=== PATIENT | female | born 1960 | race Caucasian/White ===

== ENCOUNTER → 2016-11-05 16:20 | Outpatient (CLI) | payer OTHER | END | disposition home or self-care (01) | LOC: D.MAMMO 15:15 | DX: Z12.31 Encounter for screening mammogram for malignant neoplasm of breast (principal) ==

== ENCOUNTER → 2017-03-12 15:59 | Outpatient (CLI) | payer OTHER | END | disposition home or self-care (01) | LOC: D.CT 15:59 | DX: R91.1 Solitary pulmonary nodule (principal) ==

== ENCOUNTER → 2017-09-13 09:29 | Outpatient (CLI) | payer OTHER | END | disposition home or self-care (01) | LOC: D.RT 09:29 | DX: J44.9 Chronic obstructive pulmonary disease, unspecified (principal) ==

== ENCOUNTER → 2017-11-25 12:30 | Outpatient (CLI) | payer OTHER | END | disposition home or self-care (01) | LOC: D.LABREF 12:30 | DX: J44.9 Chronic obstructive pulmonary disease, unspecified (principal) ==

== ENCOUNTER → 2017-11-26 13:19 | Outpatient (CLI) | payer OTHER | END | disposition home or self-care (01) | LOC: D.CT 13:19 | DX: I71.4 Abdominal aortic aneurysm, without rupture (principal) ==

== ENCOUNTER → 2018-12-22 08:00 | Outpatient (CLI) | payer OTHER | END | disposition home or self-care (01) | LOC: D.MAMMO 08:00 | PROVIDERS: ATTEND Family Medicine | DX: Z12.31 Encounter for screening mammogram for malignant neoplasm of breast (principal) ==

== ENCOUNTER → 2019-05-04 09:56 | Outpatient (CLI) | payer OTHER | END | disposition home or self-care (01) | LOC: D.RT 09:56 | PROVIDERS: ATTEND Internal Medicine Pulmonary Disease | DX: J44.9 Chronic obstructive pulmonary disease, unspecified (principal) ==

== ENCOUNTER 2019-12-29 10:15 | Inpatient (IN) | payer OTHER ==
[~2019-12-29] VITALS: Ht 160 cm; Wt 73.6 kg
--- NOTE | ~2019-12-29 | EC ---
PATIENT:VENECIA CARRERA DATE OF SERVICE: 12/29/19 SEX: F MEDICAL RECORD: [id number] DATE OF : 62 LOCATION:D.M2 D.210 AGE OF PATIENT: 59 ADMISSION DATE: 12/29/19 REFERRING PHYSICIAN: INTERPRETING PHYSICIAN: WENDY BURNETT MD ECHOCARDIOGRAM REPORT ECHO CHARGES 5 ECHO LIMITED Date: 12/30/19 CLINICAL DIAGNOSIS: DYSPNEA ECHOCARDIOGRAPHIC MEASUREMENTS (adult normal given) AC root (d.<3.7cm) cm LV Septum d (<1.2 cm> cm Valve Excursion cm LV Septum (systole) cm Left Atria (s.<4.0cm> 2.9 cm LVPW d(<1.2cm) cm RV (d.<2.3cm) cm LVPW (sytole) cm LV diastole(<5.6CM) cm MV E-F(>70mm/sec) cm LV systole cm LVOT Diameter cm MV exc.(>10mm) cm Est.ejection fraction (50-75%) % DOPPLER: LVIT cm/sec A 68 cm/sec E 66 cm/sec LA cm/sec RVSP 20.1 mmHg LVOT 81 cm/sec AOP1/2T m/s Asc. Ao 140 cm/sec RVOT cm/sec RA cm/sec PA cm/sec AV Gradient Peak 7.9 mmHg AV Mean 3.9 mmHg AV Area cm MV Gradient Peak 3.2 mmHg MV Mean 1.8 mmHg MV Area cm COMMENTS: Painter Barrel: Ev MCKNIGHT Manager Mental Health: Etienne Burnett TAPE# PACS Pericardial Effusion Y DATE OF SERVICE: FINDINGS: 1. Left ventricular chamber size is within normal limits. Left ventricular systolic function is normal. Overall ejection fraction estimated at 50%. 2. Left atrium, right atrium, and right ventricle chamber sizes are within normal limits. 3. Valvular structures have normal structure and motion. 4. Doppler interrogation reveals mild tricuspid regurgitation, no other valvular insufficiency or stenosis. Pulmonary systolic pressure estimated at 20 ECHOCARDIOGRAM REPORT [id number] VENECIA CARRERA mmHg. 5. No evidence of pericardial effusion. No evidence of left atrial thrombus. There is trace to small pericardial effusion present that is not hemodynamically significant. TRANSINT:[id number] Voice Confirmation ID: [id number] DOCUMENT ID: [id number] WENDY BURNETT MD CC: [id number] DICTATION DATE: 12/31/191115 FORGE HAND: 12/31/19 1858 ADM IN [facility] [address] [id number]
[2019-12-29] MEDS ORDERED: CYCLOBENZAPRINE10 MG PO (10:20)
[2019-12-29] MEDS ORDERED: ZOLOFT100 MG PO (10:21)
[2019-12-29] MEDS ORDERED: ALDACTONE50 MG PO (10:21)
[2019-12-29] MEDS ORDERED: ABILIFY10 MG PO (10:21)
[2019-12-29] MEDS ORDERED: MOBIC7.5 MG PO (10:21)
[2019-12-29] MEDS ORDERED: DALIRESP500 MCG PO (10:21)
[2019-12-29] MEDS ORDERED: SINGULAIR10 MG PO (10:22)
[2019-12-29] MEDS ORDERED: PROMETRIUM200 MG PO (10:22)
[2019-12-29] MEDS ORDERED: ADDERALL XR 2525 MG PO (10:22)
[2019-12-29] MEDS ORDERED: FOLATE0.4 MG PO (10:22)
[2019-12-29] MEDS ORDERED: AMBIEN10 MG PO (10:22)
[2019-12-29] MEDS ORDERED: PULMICORT0.5 MG/21 INH (10:23)
[2019-12-29] MEDS ORDERED: BROVANA15 MCG/2 M INH (10:23)
[2019-12-29] MEDS ORDERED: XOPENEX 1.1.25 MG/3 UPD (10:23)
[2019-12-29] MEDS ORDERED: SPIRIVA18 MCG INH (10:23)
[2019-12-29 10:44] LABS: BASOPHILS 0.3 % (0-2); HEMATOCRIT 46.2 % (36.0-48.0); HEMOGLOBIN 15.2 g/dL (12-16); IMMATURE GRANULOCYTES 0.3 % (0-5); LYMPHOCYTES 10.7 % (15-50); MCH 32.2 pg (26.0-34.0); MCHC 32.9 g/dL (31.0-37.0); MCV 97.9 fL (80.0-100.0); MONOCYTES 7.8 % (2-11); NEUTROPHILS 77.9 % (40-80); PLATELET COUNT 294 10x3/uL (130-400); RBC 4.72 10x6/uL (4.00-5.40); RDW 12.6 % (11.5-14.5); WBC 8.8 10x3/uL (4.8-10.8)
[2019-12-29 10:55] LABS: CALC OSMOLALITY 275 mosm/kg (275-300); CALCIUM 9.4 mg/dL (8.5-10.1); CARBON DIOXIDE 33.8 mmol/L (21.0-32.0); CHLORIDE - SERUM 100 mmol/L (98-107); CREATININE - SERUM 0.6 mg/dL (0.6-1.3); GLUCOSE 113 mg/dL (74-106); POTASSIUM - SERUM 4.3 mmol/L (3.5-5.1); SODIUM 138 mmol/L (136-145); UREA NITROGEN 11 mg/dL (7-18); eGFR NON AFRICAN AMERICAN > 90 mL/min (90-120)
[2019-12-29 10:56] LABS: APTT 26.5 SECONDS (22.8-39.4); INR 0.89 (0.85-1.17)
[2019-12-29 11:12] LABS: ALBUMIN 3.8 g/dL (3.4-5.0); ALKALINE PHOSPHATASE 92 U/L (30-120); ALT (SGPT) 34 U/L (10-68); BILIRUBIN - TOTAL 0.26 mg/dL (0.2-1.3); CREATINE KINASE 115 UL (21-215); PRO BNP 149 pg/mL (0-125); TROPONIN-I < 0.017 ng/mL (0.000-0.060)
[2019-12-29 11:30] VITALS: BP 154/108
--- NOTE | 2019-12-29 13:00 | NUR ---
PT AMB TO BR AND BECAME EXTREMELY SOB. MD NOTIFIED AND BREATHIGN TX ORDEED.
[2019-12-29 13:19] VITALS: BP 146/100
--- NOTE | 2019-12-29 14:28 | NUR ---
report to HENNA Jones at 14:27
[2019-12-29 15:03] VITALS: BP 146/100; BMI 28.7
--- NOTE | 2019-12-29 19:10 | NUR ---
REPORT RECEIVED. BEDSIDE SHIFT REPORT COMPLETE. PT RESTING IN BED WATCHING TV, RR EVEN AND UNLABORED. NO S/SX OF DISTRESS OBSERVED AT THIS TIME. NO NEEDS EXPRESSED. CALL LIGHT IN REACH. WILL CTM.
[2019-12-29 20:00] VITALS: BP 148/94
[2019-12-29 20:00] LABS: CREATINE KINASE 117 UL (21-215)
[2019-12-29 20:06] LABS: TROPONIN-I < 0.017 ng/mL (0.000-0.060)
[2019-12-30] VITALS: BP 147/95
[2019-12-30 01:46] LABS: CKMB 9.9 U/L (0.0-3.6); CREATINE KINASE 101 UL (21-215); TROPONIN-I < 0.017 ng/mL (0.000-0.060)
[2019-12-30 04:00] VITALS: BP 126/89
[2019-12-30 05:12] LABS: BASOPHILS 0.2 % (0-2); EOSINOPHILS 0 % (0-7); HEMATOCRIT 44.6 % (36.0-48.0); HEMOGLOBIN 14.6 g/dL (12-16); IMMATURE GRANULOCYTES 0.2 % (0-5); LYMPHOCYTES 7.5 % (15-50); MCH 31.7 pg (26.0-34.0); MCHC 32.7 g/dL (31.0-37.0); MEAN PLATELET VOLUME 9.1 fL (7.4-10.4); MONOCYTES 1.7 % (2-11); NEUTROPHILS 90.4 % (40-80); PLATELET COUNT 318 10x3/uL (130-400); RDW 12.7 % (11.5-14.5); WBC 6.6 10x3/uL (4.8-10.8)
[2019-12-30 05:42] LABS: ALBUMIN 3.7 g/dL (3.4-5.0); ALKALINE PHOSPHATASE 82 U/L (30-120); ALT (SGPT) 33 U/L (10-68); BILIRUBIN - TOTAL 0.32 mg/dL (0.2-1.3); CALC OSMOLALITY 278 mosm/kg (275-300); CALCIUM 9.8 mg/dL (8.5-10.1); CARBON DIOXIDE 32.2 mmol/L (21.0-32.0); CHLORIDE - SERUM 101 mmol/L (98-107); CKMB 8.1 U/L (0.0-3.6); CREATINE KINASE 87 UL (21-215); CREATININE - SERUM 0.5 mg/dL (0.6-1.3); GLUCOSE 126 mg/dL (74-106); MAGNESIUM - SERUM 2.1 mg/dL (1.8-2.4); PHOSPHOROUS 3.7 mg/dL (2.5-4.9); POTASSIUM - SERUM 4.1 mmol/L (3.5-5.1); PROTEIN - SERUM 7.7 g/dL (6.4-8.2); SODIUM 139 mmol/L (136-145); UREA NITROGEN 10 mg/dL (7-18); eGFR NON AFRICAN AMERICAN > 90 mL/min (90-120)
[2019-12-30 05:48] LABS: TROPONIN-I < 0.017 ng/mL (0.000-0.060)
[2019-12-30 09:10] VITALS: BP 144/100
--- NOTE | 2019-12-30 10:20 | NUR ---
ASSISTED UP TO CHAIR WITH PT ASSIST. TELEMETRY SR. 02 3.5L NC NOTED. CALL LIGHT IN REACH.
[2019-12-30 12:00] VITALS: BP 144/104
[2019-12-30 15:12] VITALS: Ht 160 cm; Wt 73.6 kg
[2019-12-30 16:00] VITALS: BP 166/100
--- NOTE | 2019-12-30 19:00 | NUR ---
REPORT RECEIVED. BEDSIDE SHIFT REPORT COMPLETE. PT IN BED HIGH-FOWLERS RR EVEN AND LABORED. AUDIBLE WHEEZES HEARD. PT VOICES NO C/O OR CONCERNS AT THIS TIME. NO S/SX OF DISTRESS OBSERVED. CALL LIGHT IN REACH. WILL CTM.
[2019-12-30 20:00] VITALS: BP 148/100
[2019-12-31 01:35] VITALS: BP 155/106
--- NOTE | 2019-12-31 03:00 | NUR ---
PT C/O SOB AND INCREASED ANXIETY. PT AGREED TO BIPAP, NOTIFIED RT. PT CONTINUES TO HAVE FREQUENT NON-PRODUCTIVE COUGH AND WHEEZES.
--- NOTE | 2019-12-31 05:00 | NUR ---
BSC PROVIDED, INCREASED SOB AND HEART RATE WITH MINIMAL EXERTION. ENCOURAGED CALL LIGHT FOR ASSISTANCE.
[2019-12-31 05:11] VITALS: BP 146/98
[2019-12-31 05:15] LABS: BASOPHILS 0.1 % (0-2); EOSINOPHILS 0 % (0-7); HEMATOCRIT 45.1 % (36.0-48.0); HEMOGLOBIN 14.9 g/dL (12-16); IMMATURE GRANULOCYTES 0.4 % (0-5); LYMPHOCYTES 3.4 % (15-50); MCH 31.8 pg (26.0-34.0); MCV 96.2 fL (80.0-100.0); MEAN PLATELET VOLUME 9.4 fL (7.4-10.4); NEUTROPHILS 93.1 % (40-80); PLATELET COUNT 329 10x3/uL (130-400); RBC 4.69 10x6/uL (4.00-5.40); RDW 12.6 % (11.5-14.5); WBC 11.2 10x3/uL (4.8-10.8)
[2019-12-31 05:27] LABS: CALC OSMOLALITY 276 mosm/kg (275-300); CALCIUM 9.6 mg/dL (8.5-10.1); CARBON DIOXIDE 35.1 mmol/L (21.0-32.0); CHLORIDE - SERUM 96 mmol/L (98-107); CREATININE - SERUM 0.6 mg/dL (0.6-1.3); GLUCOSE 119 mg/dL (74-106); MAGNESIUM - SERUM 2.3 mg/dL (1.8-2.4); POTASSIUM - SERUM 4.3 mmol/L (3.5-5.1); SODIUM 137 mmol/L (136-145); eGFR NON AFRICAN AMERICAN > 90 mL/min (90-120)
[2019-12-31 05:29] LABS: UREA NITROGEN 19 mg/dL (7-18)
[2019-12-31 09:14] VITALS: BP 154/100
--- NOTE | 2019-12-31 09:37 | NUR ---
PT AWAKE AND ORIENTED. LYING N BED, NO COMPLAINTS OR CONCERNS, ABX DONE, SL I/V. NO FAMILY AT BEDSIDE. ALL QUESTIONS ANSWERED TO THE BEST OF MY ABILITY. CL IN REACH, SRX2.
[2019-12-31 12:00] VITALS: BP 135/94
--- NOTE | 2019-12-31 13:11 | NUR ---
PT AWAKE AND ORIENTED, SITTING UP IN BED. CALLED INTO ROOM, PT WAS SITTING CROSS LEGGED IN BED BENT SLIGHTLY. PT STATES THAT SHE CAN NOT BREATH. SHE IS FLUSHED, WHEEZING AUDIBLE FROM THE DOORWAY. SPOKE TO DR KIM, HE ADMINISTERED BREATHING TX. ORDERED BIPAP AND ABGS (RESPIRATORY BRINGING UP NOW). 02 SATS AT 95%. CL IN [facility],SRX2.
[2019-12-31 16:42] VITALS: BP 154/94
--- NOTE | 2019-12-31 17:00 | NUR ---
I have reviewed this patient and I concur with the Shift Assessment completed by the Licensed Practical Nurse today this shift.
[2019-12-31 20:00] VITALS: BP 135/105
[2020-01-01] VITALS (7 sets, daily range): BP systolic 128–170; BP diastolic 90–102
[2020-01-01 05:20] LABS: BASOPHILS 0 % (0-2); EOSINOPHILS 0 % (0-7); HEMATOCRIT 43.5 % (36.0-48.0); HEMOGLOBIN 14.2 g/dL (12-16); IMMATURE GRANULOCYTES 0.3 % (0-5); LYMPHOCYTES 4.9 % (15-50); MCH 31.8 pg (26.0-34.0); MCHC 32.6 g/dL (31.0-37.0); MCV 97.3 fL (80.0-100.0); MEAN PLATELET VOLUME 9.2 fL (7.4-10.4); MONOCYTES 3.4 % (2-11); NEUTROPHILS 91.4 % (40-80); PLATELET COUNT 340 10x3/uL (130-400); RBC 4.47 10x6/uL (4.00-5.40); RDW 12.7 % (11.5-14.5); WBC 10.1 10x3/uL (4.8-10.8)
[2020-01-01 06:03] LABS: CALC OSMOLALITY 280 mosm/kg (275-300); CARBON DIOXIDE 37.7 mmol/L (21.0-32.0); CHLORIDE - SERUM 100 mmol/L (98-107); CREATININE - SERUM 0.7 mg/dL (0.6-1.3); GLUCOSE 155 mg/dL (74-106); MAGNESIUM - SERUM 2.1 mg/dL (1.8-2.4); POTASSIUM - SERUM 4.1 mmol/L (3.5-5.1); SODIUM 137 mmol/L (136-145); UREA NITROGEN 23 mg/dL (7-18); eGFR NON AFRICAN AMERICAN > 90 mL/min (90-120)
--- NOTE | 2020-01-01 07:31 | NUR ---
PTS B/P ELECTRONICALLY READING TOO HIGH, STUDENT IN ROOM GETTING MANUAL BLOOD PREASURE. WILL UPDATE.
--- NOTE | 2020-01-01 12:10 | NUR ---
PT AWAKE AND ORIENTED, HAS HAD NO COMPLICATIONS WITH BREATHING THIS MORNING, MORE THAN COMPLIENT WITH THE BIPAP AND REQUESTS IT ON ALL THE TIME IF IT'LL HELP HER GET BETTER FASTER. NOTED LESS SHORTNESS OF BREATH THAN YESTERDAY, ABLE TO GO TO THE BATHROOM WITH OUT INCIDENT. NO COMPLAINTS OR CONCENRS AT THIS TIME. CL INR EACH, SRX2, NO FAMILY AT BEDSIDE.
--- NOTE | 2020-01-01 12:48 | NUR ---
I have reviewed this patient and I concur with the Shift Assessment completed by the Licensed Practical Nurse today this shift.
--- NOTE | 2020-01-01 19:20 | NUR ---
PT AWAKE AND SOB O2 PUT FROM 3 BACK TO 4 LITERS PT SOON CAUGHT HER BREATH LUNGS VERY DEMINISHED BED LOW AND LOCKED IV IS OCLUDID CALL LIGHT IS WITH PT
--- NOTE | 2020-01-01 19:51 | NUR ---
RESTARTED IV WITH 22 TO LEFT FA AFTER REMOVING OLD SITE WITH CATH INTACT CONTINUED DOXYCYCLINE AT THIS TIME
[2020-01-02 00:12] VITALS: BP 134/99
--- NOTE | 2020-01-02 03:33 | NUR ---
I have reviewed this patient and I concur with the Shift Assessment completed by the Licensed Practical Nurse today this shift.
[2020-01-02 03:45] VITALS: BP 162/102
[2020-01-02 04:48] LABS: BASOPHILS 0 % (0-2); EOSINOPHILS 0 % (0-7); HEMATOCRIT 43.1 % (36.0-48.0); HEMOGLOBIN 13.9 g/dL (12-16); IMMATURE GRANULOCYTES 0.5 % (0-5); MCH 31.4 pg (26.0-34.0); MCHC 32.3 g/dL (31.0-37.0); MCV 97.5 fL (80.0-100.0); MEAN PLATELET VOLUME 8.9 fL (7.4-10.4); MONOCYTES 9.2 % (2-11); NEUTROPHILS 82.3 % (40-80); PLATELET COUNT 331 10x3/uL (130-400); RBC 4.42 10x6/uL (4.00-5.40); RDW 12.3 % (11.5-14.5); WBC 11.7 10x3/uL (4.8-10.8)
[2020-01-02 05:14] LABS: CALCIUM 9.2 mg/dL (8.5-10.1); CARBON DIOXIDE 39.6 mmol/L (21.0-32.0); CHLORIDE - SERUM 100 mmol/L (98-107); POTASSIUM - SERUM 4.3 mmol/L (3.5-5.1); SODIUM 140 mmol/L (136-145); UREA NITROGEN 20 mg/dL (7-18)
[2020-01-02 05:20] LABS: CALC OSMOLALITY 281 mosm/kg (275-300); CREATININE - SERUM 0.5 mg/dL (0.6-1.3); GLUCOSE 92 mg/dL (74-106); eGFR NON AFRICAN AMERICAN > 90 mL/min (90-120)
--- NOTE | 2020-01-02 07:00 | NUR ---
RECEIVED REPORT. ASSUMED CARE OF PATIENT. PATIENT SITTING UP IN BED WITH EYES OPEN. RESP EVEN AND UNLABORED. BIPAP PATENT. PATIENT DENIES NEEDS AT THIS TIME. CALL LIGHT WITHIN REACH. NO DISTRESS.
[2020-01-02 09:03] VITALS: BP 156/88
--- NOTE | 2020-01-02 11:38 | NUR ---
PATIENT OOB TO CHAIR AT BEDSIDE. STARTED ON NYSTATIN FOR ORAL THRUSH. NO DISTRESS. CALL LIGHT WITHIN REACH.
[2020-01-02 13:43] VITALS: BP 156/62
--- NOTE | 2020-01-02 15:00 | NUR ---
PATIENT RESTING WELL WITH EYES CLOSED. RESP EVEN AND UNLABORED ON BIPAP. EASILY AROUSED. NO DISTRESS.
--- NOTE | 2020-01-02 15:25 | NUR ---
PATIENT BIPAP ALARMING, PATIENT TOOK BIPAP OFF TO CONSUME DONUT. 02 VIA NASAL CANULA AT THIS TIME. NO DISTRESS.
[2020-01-02 17:04] VITALS: BP 150/94
--- NOTE | 2020-01-02 17:40 | NUR ---
22 GAUGE IV REMOVED FROM LEFT FOREARM DUE TO PAIN, STINGING. CATHETER TIP INTACT. NO BLEEDING FROM SITE. 2X2 GAUZE APPLIED AND SECURED WITH TAPE. 20 GAUGE IV PLACED TO RIGHT HAND X 1 STICK. GOOD BLOOD RETURN, EASY FLUSH. TOLERALED IV PLACEMENT WELL. TAPED, DATED AND SECURED. IV ABX NOW INFUSING.
--- NOTE | 2020-01-02 19:11 | NUR ---
AWKE AND ALERT BED LOW AND LOCKED REMOVED LINE AND FLUSHED IV PT DENIES ANY OTHER NEEDS AT THIS TIME
[2020-01-02 20:39] VITALS: BP 160/106
[2020-01-03] VITALS: BP 181/114
--- NOTE | 2020-01-03 01:40 | NUR ---
I have reviewed this patient and I concur with the Shift Assessment completed by the Licensed Practical Nurse today this shift.
[2020-01-03 05:13] VITALS: BP 146/96
[2020-01-03 06:52] LABS: BASOPHILS 0 % (0-2); EOSINOPHILS 0 % (0-7); HEMATOCRIT 44.1 % (36.0-48.0); HEMOGLOBIN 14.1 g/dL (12-16); IMMATURE GRANULOCYTES 0.6 % (0-5); LYMPHOCYTES 4.7 % (15-50); MCH 31.2 pg (26.0-34.0); MCV 97.6 fL (80.0-100.0); MEAN PLATELET VOLUME 9.1 fL (7.4-10.4); MONOCYTES 3.2 % (2-11); NEUTROPHILS 91.5 % (40-80); PLATELET COUNT 315 10x3/uL (130-400); RBC 4.52 10x6/uL (4.00-5.40); RDW 12.5 % (11.5-14.5); WBC 10.3 10x3/uL (4.8-10.8)
[2020-01-03 07:18] LABS: CALC OSMOLALITY 283 mosm/kg (275-300); CALCIUM 9.4 mg/dL (8.5-10.1); CHLORIDE - SERUM 99 mmol/L (98-107); CREATININE - SERUM 0.5 mg/dL (0.6-1.3); POTASSIUM - SERUM 4.5 mmol/L (3.5-5.1); SODIUM 140 mmol/L (136-145); UREA NITROGEN 18 mg/dL (7-18); eGFR NON AFRICAN AMERICAN > 90 mL/min (90-120)
[2020-01-03 07:20] LABS: GLUCOSE 148 mg/dL (74-106)
[2020-01-03 09:00] VITALS: BP 145/90
--- NOTE | 2020-01-03 09:51 | NUR ---
PT C/O SOB AFTER AMBULATING TO THE BR. PT WEARING BIPAP NOW AND I CALLED RESPIRATORY FOR BREATHING TREATMENT. LUNGS HAVE SEVERE EXPIRATORY WHEEZING THROUGHOUT ALL LOBES. PULSE OX 98% WILL CTM.
--- NOTE | 2020-01-03 10:24 | NUR ---
PT VOICED RELIEF AND STATES SHE IS BREATHING BETTER NOW. RR NONLABORED AND NC @4L BACK IN PLACE. PT SITTING STRAIGHT UP IN BED AND DENIES ANY CURRENT PAIN OR NEEDS AT THIS TIME. CL IN REACH, BED IN LOWEST, SIDE RAILS X2. WILL CTM.
[2020-01-03 11:00] VITALS: BP 170/104
--- NOTE | 2020-01-03 19:15 | NUR ---
REPORT RECEIVED, WILL CONTINUE POC. PATIENT IS AAOX4, LYING IN HIGH-FOWLERS POSITION. PIV TO RT WRIST INFUSING NS. RR EVEN AND UNLABORED ON 4L O2 VIA NC, NO S/S OF DISTRESS OBSERVED. PATIENT DENIES NEEDS AT THIS TIME. CL IN REACH, BED LOCKED AND LOWERED. WILL CTM.
[2020-01-03 20:00] VITALS: BP 140/101
[2020-01-04] VITALS: BP 144/101
--- NOTE | 2020-01-04 03:37 | NUR ---
I have reviewed this patient and I concur with the Shift Assessment completed by the Licensed Practical Nurse today this shift.
[2020-01-04 04:00] VITALS: BP 163/103
[2020-01-04 05:49] LABS: CALC OSMOLALITY 281 mosm/kg (275-300); CHLORIDE - SERUM 100 mmol/L (98-107); CREATININE - SERUM 0.5 mg/dL (0.6-1.3); GLUCOSE 111 mg/dL (74-106); POTASSIUM - SERUM 4.5 mmol/L (3.5-5.1); SODIUM 139 mmol/L (136-145); UREA NITROGEN 21 mg/dL (7-18); eGFR NON AFRICAN AMERICAN > 90 mL/min (90-120)
[2020-01-04 05:53] LABS: CARBON DIOXIDE 40.7 mmol/L (21.0-32.0)
[2020-01-04 05:57] LABS: BASOPHILS 0.1 % (0-2); EOSINOPHILS 0 % (0-7); IMMATURE GRANULOCYTES 1.1 % (0-5); LYMPHOCYTES 4.4 % (15-50); MCHC 32.6 g/dL (31.0-37.0); MCV 98.4 fL (80.0-100.0); MONOCYTES 4.9 % (2-11); NEUTROPHILS 89.5 % (40-80); PLATELET COUNT 314 10x3/uL (130-400); RBC 4.37 10x6/uL (4.00-5.40); RDW 12.4 % (11.5-14.5); WBC 11.8 10x3/uL (4.8-10.8)
[2020-01-04 08:57] VITALS: BP 170/109
[2020-01-04 12:02] VITALS: BP 171/107
[2020-01-04 17:07] VITALS: BP 142/70
--- NOTE | 2020-01-04 19:21 | NUR ---
AWAKE WITH BIPAP IN PLACE DENIES NEEDS AT THIS TIME BED LOW AND LOCKED CALL LIGHT IS WITH PT
[2020-01-04 20:00] VITALS: BP 135/85
[2020-01-05] VITALS: BP 121/78
--- NOTE | 2020-01-05 03:10 | NUR ---
I have reviewed this patient and I concur with the Shift Assessment completed by the Licensed Practical Nurse today this shift.
[2020-01-05 04:00] VITALS: BP 169/99
--- NOTE | 2020-01-05 07:50 | NUR ---
PT SITTING UP IN BED. TALKING ON THE PHONE. O2 AT 3L VIA NC. BED LOW. CL IN REACH.
[2020-01-05 08:52] VITALS: BP 165/98
[2020-01-05] MEDS ORDERED: PROTONIX40 MG PO (10:09)
[2020-01-05] MEDS ORDERED: LISINOPRIL10 MG PO (10:09)
[2020-01-05] MEDS ORDERED: STERAPRED DS 1010 MG PO (10:10)
--- NOTE | 2020-01-05 12:02 | NUR ---
Nutrition Follow-up: Fair PO intake. Noted plans for d/c. Diet: Cardiac PO intake: 56% avg x 4 meals Wt: 162# (01/03) Labs noted: Glu 111 Meds noted: Solumedrol, Nystatin, Protonix -Continue current diet as tolerated. -Monitor wt; noted daily wts ordered. -RD following.
--- NOTE | 2020-01-05 13:00 | MORECARE ---
CASE MANAGEMENT DISCHARGE SUMMARY PATIENT: VENECIA CARRERA UNIT: [id number] ADM DATE: 12/29/19 AGE: 59 : 62 SEX: F ROOM/BED: D.2105 AUTHOR: BRYCE,DOC PHYSICIAN: REFERRING PHYSICIAN: MASSIEL PAZ MD DATE OF SERVICE: 01/05/20 Discharge Plan Patient Name: VENECIA CARRERA Facility: [facility]:[place] : 1960 Planned Disposition: Home Anticipated Discharge Date: 01/05/20 Discharge Date: Expected LOS: 7 Initial Reviewer: [id number] Initial Review Date: 01/05/2020 Generated: 01/05/20 1:59 pm DCPIA - Discharge Planning Initial Assessment Updated by PASQUALE: Celso Finley on 01/05/20 12:58 pm * Is the patient Alert and Oriented? Yes * How many steps to enter\exit or inside your home? * PCP DR. PAZ OR EPI * Pharmacy [facility] * Preadmission Environment Home with Family * ADLs Independent * Equipment Nebulizer Oxygen * Other Equipment HOME AND PORTABLE OXYGEN [facility] - PROVIDER * List name and contact numbers for known caregivers / representatives who currently or will assist patient after discharge: DONNA SPARKS, DTR, * Verbal permission to speak to the caregivers and representatives has been obtained from the patient. N/A * Community resources currently utilized None * Please name any agencies selected above. NONE * Additional services required to return to the preadmission environment? No * Can the patient safely return to the preadmission environment? Yes * Has this patient been hospitalized within the prior 30 days at any hospital? No External Providers External Provider[facility] [place] Next Contact Date: 01/05/2020 Service Request Date: Service Type: Resolution: Reviewer: Comments: Coverage Notice Reviewer: [id number] - Celso Finley Notice Issued Date-Time: 01/05/2020 12:15 Notice Type: Patient Choice Letter Notice Delivered To: Patient Relationship to Patient: Ground Host/Hostess Name: Delivery Method: HAND - Hand Delivered Abbey Days: Prior Verbal Notification: Recipient Understood Notice: Yes Recipient Signature: Yes Med Rec Note Co-signed by Attending: Coverage Notice Comment: GOLDEN Patient Name: VENECIA CARRERA Page [phone] at 1300 All edits/amendments must be made on the electronic document DICTATION DATE: 01/05/201258 CHEMICAL ENGRAVER: BRAYAN 01/05/201258 RPT#: [id number] DC DATE: STATUS: ADM IN [facility] [address] [place] [address] END OF REPORT
--- NOTE | 2020-01-05 13:21 | MORECARE ---
CASE MANAGEMENT DISCHARGE SUMMARY PATIENT: VENECIA CARRERA UNIT: [id number] ADM DATE: 12/29/19 AGE: 59 : 62 SEX: F ROOM/BED: D.0433 AUTHOR: BRYCE,DOC PHYSICIAN: REFERRING PHYSICIAN: MASSIEL PAZ MD DATE OF SERVICE: 01/05/20 Discharge Plan Patient Name: VENECIA CARRERA Facility: [facility]:[place] : 1960 Planned Disposition: Home Anticipated Discharge Date: 01/05/20 Discharge Date: Expected LOS: 7 Initial Reviewer: [email or web address] Initial Review Date: 01/05/2020 Generated: 01/05/20 2:21 pm Comments DCP- Discharge Planning Updated by [id number]: Celso Finley on 01/05/20 12:[address] Patient Name: VENECIA CARRERA Admission Status: ER Accout number: [id number] Admission Date: 12-29-2019 : 1960 Admission Diagnosis: Attending: SAMANTHA PAZ Current LOS: 7 Anticipated DC Date: 01-05-2020 Planned Disposition: Home Primary Insurance: [employer] Discharge Planning Comments: CM RECEIVED ORDER FOR TRILOGY AND PULMONARY REHAB. CM MET WITH PT IN ROOM TO DISCUSS DISCHARGE PLANNING AND NEEDS. PT REPORTS LIVING AT HOME INDEPENDENTLY WITH HER SPOUSE; PT IS CAREGIVER FOR HER SPOUSE AT HOME. PT HAS NEBULIZER AND HOME / PORTABLE OXYGEN FROM [facility] [place]. PT HAS NO OUTSIDE SERVICES ASSISTING IN THE HOME. CM DISCUSSED AVAILABILITY OF HOME HEALTH, REHAB SERVICES AND MEDICAL EQUIPMENT. PT WOULD LIKE TRILOGY FROM [facility] [place], CHOICE SIGNED. PT REPORTS FAMILY WILL PICK HER UP FOR DISCHARGE HOME. CM CALLED [facility] [place], , SPOKE TO ERASMO WHO TOOK TRILOGY ORDER. CM FAXED TRILOGY ORDERS TO [facility] AT [phone]. [facility] TO ARRANGE TRILOGY TO HOPITAL ROOM TODAY IF APPROVED BY INSURANCE. CM CALLED [facility], , TO SET UP PULMONARY REHAB OUTPATIENT; CM LEFT MESSAGE THEIR OFFICE IS NOT OPEN ON FRIDAYS, CM LEFT DETAILED MESSAGE. CM FAXED REFERRAL TO [facility] AT [phone]. CM WAITING INSURANCE APPROVAL OF TRILOGY AND FOR [facility]OLD[facility] TO DELIVER TO PT'S ROOM. [facility] TO CONTACT PT FOR APPOINTMENT. Admitting Coordinator: Celso Finley DCPIA - Discharge Planning Initial Assessment Updated by [id number]: Celso Finley on 01/05/20 12:58 pm * Is the patient Alert and Oriented? Yes * How many steps to enter\exit or inside your home? * PCP DR. PAZ OR EPI * Pharmacy [facility] [address] [facility] * Preadmission Environment Home with Family * ADLs Independent * Equipment Nebulizer Oxygen * Other Equipment HOME AND PORTABLE OXYGEN [facility] - PROVIDER * List name and contact numbers for known caregivers / representatives who currently or will assist patient after discharge: DONNA SPARKS, DTR, * Verbal permission to speak to the caregivers and representatives has been obtained from the patient. N/A * Community resources currently utilized None * Please name any agencies selected above. NONE * Additional services required to return to the preadmission environment? No * Can the patient safely return to the preadmission environment? Yes * Has this patient been hospitalized within the prior 30 days at any hospital? No Coverage Notice Reviewer: [id number] - Celso Finley Notice Issued Date-Time: 01/05/2020 12:15 Notice Type: Patient Choice Letter Notice Delivered To: Patient Relationship to Patient: Scudding Inspector Name: Delivery Method: HAND - Hand Delivered Abbey Days: Prior Verbal Notification: Recipient Understood Notice: Yes Recipient Signature: Yes Med Rec Note Co-signed by Attending: Coverage Notice Comment: GOLDEN Last DP export: 01/05/20 12:00 p Patient Name: VENECIA CARRERA Page [phone] at 1321 All edits/amendments must be made on the electronic document DICTATION DATE: 01/05/20 1321 MANAGER FINANCIAL REPORTING: BRAYAN 01/05/20 1321 RPT#: [id number] DC DATE: STATUS: ADM IN [facility] [address] [place] [address] END OF REPORT
--- NOTE | 2020-01-05 14:06 | MORECARE ---
CASE MANAGEMENT DISCHARGE SUMMARY PATIENT: VENECIA CARRERA UNIT: [id number] ADM DATE: 12/29/19 AGE: 59 : 62 SEX: F ROOM/BED: D.1904 AUTHOR: BRYCE,DOC PHYSICIAN: REFERRING PHYSICIAN: MASSIEL PAZ MD DATE OF SERVICE: 01/05/20 Discharge Plan Patient Name: VENECIA CARRERA Facility: [facility]:[place] : 1960 Planned Disposition: Home Anticipated Discharge Date: 01/05/20 Discharge Date: Expected LOS: 7 Initial Reviewer: [id number] Initial Review Date: 01/05/2020 Generated: 01/05/20 3:06 pm Comments DCP- Discharge Planning Updated by [email or web address]: Celso Finley on 01/05/20 12:[address] Patient Name: VENECIA CARRERA Admission Status: ER Accout number: [id number] Admission Date: 12-29-2019 : 1960 Admission Diagnosis: Attending: SAMANTHA PAZ Current LOS: 7 Anticipated DC Date: 01-05-2020 Planned Disposition: Home Primary Insurance: [employer] Discharge Planning Comments: CM RECEIVED ORDER FOR TRILOGY AND PULMONARY REHAB. CM MET WITH PT IN ROOM TO DISCUSS DISCHARGE PLANNING AND NEEDS. PT REPORTS LIVING AT HOME INDEPENDENTLY WITH HER SPOUSE; PT IS CAREGIVER FOR HER SPOUSE AT HOME. PT HAS NEBULIZER AND HOME / PORTABLE OXYGEN FROM [facility]. PT HAS NO OUTSIDE SERVICES ASSISTING IN THE HOME. CM DISCUSSED AVAILABILITY OF HOME HEALTH, REHAB SERVICES AND MEDICAL EQUIPMENT. PT WOULD LIKE TRILOGY FROM [facility], CHOICE SIGNED. PT REPORTS FAMILY WILL PICK HER UP FOR DISCHARGE HOME. CM CALLED [facility], , SPOKE TO ERASMO WHO TOOK TRILOGY ORDER. CM FAXED TRILOGY ORDERS TO [facility] AT [phone]. [facility] TO ARRANGE TRILOGY TO HOPITAL ROOM TODAY IF APPROVED BY INSURANCE. CM CALLED [facility], , TO SET UP PULMONARY REHAB OUTPATIENT; CM LEFT MESSAGE THEIR OFFICE IS NOT OPEN ON FRIDAYS, CM LEFT DETAILED MESSAGE. CM FAXED REFERRAL TO [facility] AT [phone]. CM WAITING INSURANCE APPROVAL OF TRILOGY AND FOR [facility]EN TO DELIVER TO PT'S ROOM. [facility] TO CONTACT PT FOR APPOINTMENT. Charge Auditor: Celso Finley DCPIA - Discharge Planning Initial Assessment Updated by [email or web address]: Celso Finley on 01/05/20 12:58 pm * Is the patient Alert and Oriented? Yes * How many steps to enter\exit or inside your home? * PCP DR. PAZ OR EPI * Pharmacy [facility] [address] [facility] * Preadmission Environment Home with Family * ADLs Independent * Equipment Nebulizer Oxygen * Other Equipment HOME AND PORTABLE OXYGEN [facility] - PROVIDER * List name and contact numbers for known caregivers / representatives who currently or will assist patient after discharge: DONNA SPARKS, DTR, * Verbal permission to speak to the caregivers and representatives has been obtained from the patient. N/A * Community resources currently utilized None * Please name any agencies selected above. NONE * Additional services required to return to the preadmission environment? No * Can the patient safely return to the preadmission environment? Yes * Has this patient been hospitalized within the prior 30 days at any hospital? No External Providers External Provider: OTHER-OTHER Next Contact Date: 01/05/2020 Service Request Date: Service Type: Resolution: Reviewer: Comments: Coverage Notice Reviewer: [id number] - Celso Finley Notice Issued Date-Time: 01/05/2020 12:15 Notice Type: Patient Choice Letter Notice Delivered To: Patient Relationship to Patient: Bundle Wrapper Name: Delivery Method: HAND - Hand Delivered Abbey Days: Prior Verbal Notification: Recipient Understood Notice: Yes Recipient Signature: Yes Med Rec Note Co-signed by Attending: Coverage Notice Comment: GOLDEN Killian DP export: 01/05/20 12:21 p Patient Name: VENECIA CARRERA Page [phone] at 1406 All edits/amendments must be made on the electronic document DICTATION DATE: 01/05/20 1406 BILLER: BRAYAN 01/05/20 1406 RPT#: [id number] DC DATE: STATUS: ADM IN [facility] [address] [facility] [place] [address] END OF REPORT
--- NOTE | 2020-01-05 14:15 | NUR ---
I have reviewed this patient and I concur with the Shift Assessment completed by the Licensed Practical Nurse today this shift.
--- NOTE | 2020-01-05 16:41 | NUR ---
DISCHARGE INSTRUCTIONS GIVEN TO PT. PT HAS NO FURTHER QUESTIONS. CHART COPY SIGNED. TRILOGY SANITATION TRUCK CLEANER. RIGHT HAND 20G IV DC'D WITH CATH INTACT. TELEMETRY DC'D AND TAKEN TO MONITOR STATION. PT'S DAUGHTER TOOK ALL OF BELONGINGS TO HER(DAUGHTER'S) CAR. WILL GET WC TO TAKE PT DOWN.
--- NOTE | 2020-01-05 16:52 | NUR ---
PT TAKEN DOWN VIA WC AND LEFT WITH DAUGHTER IN DAUGHTER'S VEHICLE.
--- NOTE | 2020-01-06 09:50 | MORECARE ---
CASE MANAGEMENT DISCHARGE SUMMARY PATIENT: VENECIA CARRERA UNIT: [id number] ADM DATE: 12/29/19 AGE: 59 : 62 SEX: F ROOM/BED: D.2328 AUTHOR: BRYCE,DOC PHYSICIAN: REFERRING PHYSICIAN: MASSIEL PAZ MD DATE OF SERVICE: 01/06/20 Discharge Plan Patient Name: VENECIA CARRERA Facility: [facility]:[place] : 1960 Planned Disposition: Home Anticipated Discharge Date: 01/05/20 Discharge Date: 01/05/2020 Expected LOS: 7 Initial Reviewer: [email or web address] Initial Review Date: 01/05/2020 Generated: 01/06/20 10:49 am Comments DCP- Discharge Planning Updated by [email or web address]: Celso Finley on 01/05/20 12:[address] Patient Name: VENECIA CARRERA Admission Status: ER Accout number: [id number] Admission Date: 12-29-2019 : 1960 Admission Diagnosis: Attending: SAMANTHA PAZ Current LOS: 7 Anticipated DC Date: 01-05-2020 Planned Disposition: Home Primary Insurance: [employer] eto Discharge Planning Comments: CM RECEIVED ORDER FOR TRILOGY AND PULMONARY REHAB. CM MET WITH PT IN ROOM TO DISCUSS DISCHARGE PLANNING AND NEEDS. PT REPORTS LIVING AT HOME INDEPENDENTLY WITH HER SPOUSE; PT IS CAREGIVER FOR HER SPOUSE AT HOME. PT HAS NEBULIZER AND HOME / PORTABLE OXYGEN FROM [facility]. PT HAS NO OUTSIDE SERVICES ASSISTING IN THE HOME. CM DISCUSSED AVAILABILITY OF HOME HEALTH, REHAB SERVICES AND MEDICAL EQUIPMENT. PT WOULD LIKE TRILOGY FROM [facility], CHOICE SIGNED. PT REPORTS FAMILY WILL PICK HER UP FOR DISCHARGE HOME. CM CALLED [facility], , SPOKE TO ERASMO WHO TOOK TRILOGY ORDER. CM FAXED TRILOGY ORDERS TO [facility] AT [phone]. [facility] TO ARRANGE TRILOGY TO HOPITAL ROOM TODAY IF APPROVED BY INSURANCE. CM CALLED [facility], , TO SET UP PULMONARY REHAB OUTPATIENT; CM LEFT MESSAGE THEIR OFFICE IS NOT OPEN ON FRIDAYS, CM LEFT DETAILED MESSAGE. CM FAXED REFERRAL TO [facility] AT [phone]. CM WAITING INSURANCE APPROVAL OF TRILOGY AND FOR GOLDEN TO DELIVER TO PT'S ROOM. [facility] TO CONTACT PT FOR APPOINTMENT. Slate Roofer Helper: Celso Finley DCPIA - Discharge Planning Initial Assessment Updated by [id number]: Celso Finley on 01/05/20 12:58 pm * Is the patient Alert and Oriented? Yes * How many steps to enter\exit or inside your home? * PCP DR. PAZ OR EPI * Pharmacy [facility] [address] [facility] * Preadmission Environment Home with Family * ADLs Independent * Equipment Nebulizer Oxygen * Other Equipment HOME AND PORTABLE OXYGEN [facility] - PROVIDER * List name and contact numbers for known caregivers / representatives who currently or will assist patient after discharge: DONNA SPARKS, DTR, * Verbal permission to speak to the caregivers and representatives has been obtained from the patient. N/A * Community resources currently utilized None * Please name any agencies selected above. NONE * Additional services required to return to the preadmission environment? No * Can the patient safely return to the preadmission environment? Yes * Has this patient been hospitalized within the prior 30 days at any hospital? No Coverage Notice Reviewer: [id number] - Celso Finley Notice Issued Date-Time: 01/05/2020 12:15 Notice Type: Patient Choice Letter Notice Delivered To: Patient Relationship to Patient: Dental Prosthetist Name: Delivery Method: HAND - Hand Delivered Abbey Days: Prior Verbal Notification: Recipient Understood Notice: Yes Recipient Signature: Yes Med Rec Note Co-signed by Attending: Coverage Notice Comment: GOLDEN Last DP export: 01/05/20 1:06 p Patient Name: VENECIA CARRERA Page [phone] at 0950 All edits/amendments must be made on the electronic document DICTATION DATE: 01/06/20948 CONTROL OPERATOR: BRAYAN 01/06/2049 RPT#: [id number] DC DATE:01/05/20 STATUS: DIS IN [facility] [address] [place] [address] END OF REPORT
== END 2020-01-05 16:57 | disposition home or self-care (01) | DRG 189 ==
LOC: D.ER 10:15 → D.M2 12:19
PROVIDERS: Family Medicine; ADMIT Emergency Medicine; ATTEND Emergency Medicine
PROC: 5A09457 Assistance with Respiratory Ventilation, 24-96 Consecutive Hours, Continuous Positive Airway Pressure (ICD-10-PCS; principal; 2019-12-31)
DX: J96.20 Acute and chronic respiratory failure, unspecified whether with hypoxia or hypercapnia (principal); J90 Pleural effusion, not elsewhere classified; N17.9 Acute kidney failure, unspecified; J20.9 Acute bronchitis, unspecified; I10 Essential (primary) hypertension; J43.9 Emphysema, unspecified; F41.8 Other specified anxiety disorders

== ENCOUNTER → 2020-04-19 09:11 | Outpatient (CLI) | payer OTHER ==
[2019-12-30 15:12] VITALS: BMI 28.3
[~2020-04-19 09:11] MED LIST: ABILIFY10 MG PO; ADDERALL XR 2525 MG PO; ALDACTONE50 MG PO; AMBIEN10 MG PO; BROVANA15 MCG/2 M INH; CYCLOBENZAPRINE10 MG PO; DALIRESP500 MCG PO; FOLATE0.4 MG PO; LISINOPRIL10 MG PO; MOBIC7.5 MG PO; PROMETRIUM200 MG PO; PROTONIX40 MG PO; PULMICORT0.5 MG/21 INH; SINGULAIR10 MG PO; SPIRIVA18 MCG INH; STERAPRED DS 1010 MG PO; XOPENEX 1.1.25 MG/3 UPD; ZOLOFT100 MG PO
== END | disposition home or self-care (01) ==
LOC: D.RT 03-13 10:00 → D.CT 03-13 10:30 → D.RT 04-17 14:00 → D.CT 04-17 14:30 → D.RT 09:11
PROVIDERS: ATTEND Internal Medicine Pulmonary Disease
DX: J44.9 Chronic obstructive pulmonary disease, unspecified (principal); R94.2 Abnormal results of pulmonary function studies

== ENCOUNTER → 2021-03-10 12:02 | Outpatient (CLI) | payer OTHER ==
[2019-12-30 15:12] VITALS: BMI 28.3
== END | disposition home or self-care (01) ==
LOC: D.LAB 12:02
PROVIDERS: ATTEND Internal Medicine Pulmonary Disease
DX: Z11.52 Encounter for screening for COVID-19 (principal)

== ENCOUNTER → 2021-03-14 09:27 | Outpatient (CLI) | payer OTHER ==
[2019-12-30 15:12] VITALS: BMI 28.3
== END | disposition home or self-care (01) ==
LOC: D.RT 09:27
PROVIDERS: ATTEND Internal Medicine Pulmonary Disease
DX: J44.9 Chronic obstructive pulmonary disease, unspecified (principal); Z11.52 Encounter for screening for COVID-19